=== PATIENT | female | born 1990 ===

== ENCOUNTER 2024-03-16 06:37 | Outpatient (REF) | payer OTHER, SELFPAY ==
--- NOTE | ~2024-03-16 | US_ITS ---
EXAMINATION: US PELVIS CLINICAL INFORMATION: Abdominal pain. LMP 03/11/2024. COMPARISON: None available. TECHNIQUE: Ultrasound of the pelvis is performed using both transabdominal and transvaginal transducers along with Doppler. Transvaginal imaging is performed due to inadequate visualization transabdominally. FINDINGS: Uterus: The uterus is anteverted and measures 6.2 x 3.6 x 4.8 cm. The double wall endometrial thickness is 0.4 mm. IUD appropriately positioned within the endometrial cavity. The uterus is smooth in contour and has normal myometrial echogenicity. No visible fibroid. Adnexa: Both ovaries are visualized. There is normal color flow to the adnexa. There is no ovarian torsion. There is no pelvic ascites or fluid collection. Right ovary measures 2.7 x 1.5 x 2.0 cm. Volume of 4.2 mL. Left ovary measures 2.4 x 1.9 x 2.5 cm. Volume of 6 mL. US/US pelvic and transvaginal IMPRESSION: 1. IUD appropriately positioned within the endometrial cavity. 2. Otherwise unremarkable examination. Electronically signed by: Ernie Talbert MD 03/16/2024 03:57 PM [facility]
== END 2024-03-16 06:38 | disposition home or self-care (01) ==
LOC: HO.UMASIMG 06:37
PROVIDERS: Visit Provider Family Medicine
DX: R10.9 Unspecified abdominal pain (principal)
CPT/HCPCS: 76830; 76856

== ENCOUNTER 2024-06-19 06:18 | Outpatient (REF) | payer OTHER, SELFPAY | END 2024-06-19 06:19 | disposition home or self-care (01) | LOC: HO.UMASIMG 06:18 | PROVIDERS: Visit Provider Nurse Practitioner Women's Health | DX: N92.6 Irregular menstruation, unspecified (principal) | CPT/HCPCS: 76830; 76856 ==

== ENCOUNTER → 2024-06-19 14:45 | Outpatient (BNV) | payer OTHER, SELFPAY | PROVIDERS: Visit Provider Radiology Diagnostic Radiology | DX: N92.6 Irregular menstruation, unspecified (principal) | CPT/HCPCS: 76830; 76856 ==